=== PATIENT | male | born 1960 | race Hispanic/Latino ===

== ENCOUNTER 2024-09-30 19:44 | Emergency (ER) | payer OTHER ==
[~2024-09-30] VITALS: Ht 170.2 cm; Wt 102.1 kg
--- NOTE | 2024-09-30 19:50 | NUR ---
UA CUP PROVIDED
--- NOTE | 2024-09-30 19:58 | NUR ---
TRIAGE EDIT DUE TO PT INFORMS OF PMH KIDNEY STONES
--- NOTE | 2024-09-30 20:08 | EKG ---
[facility] Test Date: 2024-09-30 Test Time: 20:05:36 Pat Name: CURTIS GILL Department: ED Room: Gender: M Rn Discharge: [id number] : 1960 Requested By: JUMA ELDRIDGE Order Number: [id number] Reading MD: Prosper Maldonado Measurements Intervals [place] Rate: 65 P: 54 WI: 159 QRS: 39 QRSD: 102 T: 58 QT: 424 QTc: 442 Interpretive Statements Sinus rhythm No previous ECG available for comparison Electronically Signed On 10-02-2024 21:30:31 [employer] TECHNICIAN by Prosper Maldonado Please click the below link to view image of tracing.
[2024-09-30 20:22] LABS: APPEARANCE,URINE CLEAR (CLEAR); BILIRUBIN,URINE NEGATIVE (NEGATIVE); COLOR,URINE LIGHT-YELLOW (YELLOW); GLUCOSE, URINE (UA) >=1000 mg/dL (NEGATIVE); KETONES,URINE 5 mg/dL (NEGATIVE); LEUKOCYTE ESTERASE ,URINE NEGATIVE Leu/uL (NEGATIVE); NITRATE,URINE NEGATIVE (NEGATIVE); OCCULT BLOOD,URINE SMALL (NEGATIVE); PROTEIN,URINE 20 mg/dL (NEGATIVE); UROBILINOGEN,URINE 0.2 mg/dL (0.2-1.0)
--- NOTE | 2024-09-30 20:28 | HMCIMG ---
Exam Type: CT ABDOMEN/PELVIS W/O CONTRAST Clinical Information: right flank pain Comparison: None CT Dose Index (CTDI): 10.20 mGy Dose Length Product (DLP): 530.00 total mGy-cm PROTOCOL: Routine noncontrast helical scanning of the abdomen and pelvis was performed at 5mm collimation. Findings: Left nonobstructing nephrolithiasis. Kidneys otherwise unremarkable. The lung bases are clear. The stomach is unremarkable. It shows no wall thickening. No gross ulceration is seen. It is not overly distended. There are no surrounding inflammatory changes. No wall lesions are identified to suggest cancer. The spleen is unremarkable. It is not enlarged. The pancreas shows normal anatomy. It is not fatty replaced. It shows no lesions. The pancreatic duct is not dilated. The gallbladder is unremarkable. It shows no cholelithiasis. The gallbladder wall is normal in thickness. There is no pericholecystic fluid. The is no acute or chronic inflammation noted. The adrenal glands are unremarkable. There is no enlargement. No lesions are noted. The liver is unremarkable. It shows no focal masses. The appendix is unremarkable. It shows no evidence of inflammation. No appendicolith is seen. The small bowel is unremarkable. There is no evidence of dilatation to suggest obstruction. No evidence of adynamic ileus is seen. There is no small bowel wall thickening to suggest enteritis. The colon is unremarkable. The urinary bladder is unremarkable. There is no wall thickening to suggest tumor or inflammation. There are no intraluminal calculi. There are no diverticula. There is no evidence of chronic bladder outlet obstruction. There is no evidence of urinary bladder distention to suggest urinary retention. The other pelvic structures are unremarkable. The bony and vascular structures are unremarkable for the patient's age. IMPRESSION: Left nonobstructing nephrolithiasis. Kidneys otherwise unremarkable. This study was performed using dose reduction techniques to include automated exposure control and/or adjustment of the mA and/or kV according to patient size.
[2024-09-30 20:30] LABS: BASOPHILS % (AUTO) 0.8 % (0.0-5.0); EOSINOPHILS # (AUTO) 0.27 K/uL (0.00-0.70); EOSINOPHILS % (AUTO) 2.3 % (0.0-8.0); HEMATOCRIT 52.6 % (42-54); IMMATURE GRANULOCYTE ABSOLUTE 0.04 K/uL (0-1); LYMPHOCYTES # (AUTO) 3.3 K/uL (1.0-4.8); LYMPHOCYTES % (AUTO) 28.2 % (21.0-51.0); MEAN CORPUSCULAR HEMOGLOBIN 28.6 pg (27.0-33.0); MEAN CORPUSCULAR HGB CONC 33.3 g/dL (32.0-36.0); MEAN CORPUSCULAR VOLUME 86.1 fL (79-99); MONOCYTES # (AUTO) 0.8 K/uL (0.1-1.0); MONOCYTES % (AUTO) 6.4 % (3.0-13.0); NEUTROPHILS # (AUTO) 7.3 K/uL (1.8-7.7); PLATELET COUNT (AUTO) 238 K/uL (130-400); RED BLOOD CELL COUNT(AUTO) 6.11 MIL/uL (4.50-6.20); RED CELL DISTRIBUTION WIDTH 13.3 % (11.0-15.5); WHITE BLOOD COUNT (AUTO) 11.8 K/uL (4.8-10.8)
[2024-09-30 20:37] LABS: ADD UA MICROSCOPIC YES
[2024-09-30 20:45] LABS: SQUAMOUS EPITHELIAL CELL,UR RARE /HPF (0-2); WBC,URINE 0-1 /HPF (0-1)
[2024-09-30 20:46] LABS: CREATININE 1.5 mg/dL (0.5-1.3); POTASSIUM 3.8 mmol/L (3.5-5.1)
[2024-09-30 20:55] LABS: ALBUMIN 3.6 g/dL (3.5-5.0); BILIRUBIN,DIRECT 0.2 mg/dL (0.0-0.3); BILIRUBIN,TOTAL 1.7 mg/dL (0.2-1.0); TOTAL PROTEIN, SERUM 7.8 g/dL (6.0-8.3)
--- NOTE | 2024-09-30 21:05 | ERN ---
ED Note History of Present Illness Stated Complaint: ABDOMINAL PAIN Chief Complaint: Abdominal Pain Time Seen by MD: 19:54 Time Seen by Midlevel: 20:00 Dictation: 64-year-old male with a history of hypertension coming in complaining of right groin pain and right flank pain onset today worsening throughout the day. Patient states he has a history of kidney stones. Denies any fevers, nausea and vomiting and diarrhea Allergies: Coded Allergies: No Known Allergies (Unverified Allergy, Unknown, 09/30/24) Past Medical History Past Medical History: Diabetes-Type II, Hypertension, Kidney Stone Surgical History: None Review of System Dictation Constitutional: Negative for fever,chills, and weight loss Eyes: Negative for injury, pain,redness, and discharge ENT: Negative for injury,pain or swelling Cardiovascular: Negative for chest pain, palpitations, and edema Respiratory: Negative for shortness of breath, cough, and wheezing, Abdomen/GI: Complaining of right groin pain, nausea, vomiting, diarrhea, and constipation Back: Negative for injury and pain : Negative for injury, bleeding and discharge MS/Extremity: Negative for injury and deformity Skin: Negative for rash, and discoloration Neuro: Negative for headache, weakness, numbness, tingling, and seizure Psych: Negative for suicide ideation, homicidal ideation, and hallucinations Review of Systems: was completed Initial Vital Sign VS Vital Signs Date Time Temp Pulse Resp B/P (MAP) Pulse Ox O2 Delivery O2 Flow Rate FiO2 09/30/24 19:45 97.9 68 19 178/86 100 Room Air 09/30/24 21:50 0 21 Physical Exam Dictation General: awake, alert, NAD Head/Face: Normocephalic, atraumatic Eyes: PERRL, EOMI, vision at baseline ENT: oral cavity clear, TMs clear, no signs of infection Neck: Trachea midline, supple, no nuchal rigidity Cardiovascular: RRR, normal S1/S2, No MRGs, no JVD Respiratory: CTAB, no respiratory distress, No rales or wheezes Abdomen: Soft, non-tender, non-distended, normal bowel sounds, no guarding or rebound. Skin: Warm, dry, normal turgor, no rash MS/Extremity: Pulses equal, no cyanosis, neurovascular intact, FROM Neuro: COAx4, GCS 15, strength 5/5, CN 2-12 intact, normal cerebellar exam, normal gait, Psych: Normal behavior, mood, and affect normal Results (Laboratory/Radiology) Laboratory/Radiology Laboratory Tests Test 09/30/24 19:56 09/30/24 20:19 Urine Color LIGHT-YELLOW (YELLOW) Urine Appearance CLEAR (CLEAR) Urine pH 5.0 (5.0-8.0) Urine Specific [place] 1.013 (1.001-1.031) Urine Protein 20 mg/dL (NEGATIVE) H Urine Glucose (UA) >=1000 mg/dL (NEGATIVE) H Urine Ketones 5 mg/dL (NEGATIVE) H Urine Occult Blood SMALL (NEGATIVE) H Urine Nitrate NEGATIVE (NEGATIVE) Urine Bilirubin NEGATIVE mg/dL (NEGATIVE) Urine Urobilinogen 0.2 mg/dL (0.2-1.0) Urine Leukocyte Esterase NEGATIVE Domonique/uL Urine RBC 11-25 /HPF (0-1) H Urine WBC 0-1 /HPF (0-1) Urine Squamous Epithelial Cells RARE /HPF (0-2) Urine Bacteria None /HPF (None Seen) White Blood Count 11.8 K/uL (4.8-10.8) H Red Blood Count 6.11 MIL/uL (4.50-6.20) Hemoglobin 17.5 g/dL (14.0-18.0) Hematocrit 52.6 % (42-54) Mean Corpuscular Volume 86.1 fL (79-99) Mean Corpuscular Hemoglobin 28.6 pg (27.0-33.0) Mean Corpuscular Hemoglobin Concent 33.3 g/dL (32.0-36.0) Red Cell Distribution Width 13.3 % (11.0-15.5) Platelet Count 238 K/uL (130-400) Mean Platelet Volume 9.3 fL (7.5-10.5) Immature Granulocyte % (Auto) 0.3 % (0-1) Neutrophils (%) (Auto) 62.0 % (40.0-77.0) Lymphocytes (%) (Auto) 28.2 % (21.0-51.0) Monocytes (%) (Auto) 6.4 % (3.0-13.0) Eosinophils (%) (Auto) 2.3 % (0.0-8.0) Basophils (%) (Auto) 0.8 % (0.0-5.0) Neutrophils # (Auto) 7.3 K/uL (1.8-7.7) Lymphocytes # (Auto) 3.3 K/uL (1.0-4.8) Monocytes # (Auto) 0.8 K/uL (0.1-1.0) Eosinophils # (Auto) 0.27 K/uL (0.00-0.70) Basophils # (Auto) 0.10 K/uL (0.00-0.20) Absolute Immature Granulocyte (auto 0.04 K/uL (0-1) Nucleated Red Blood Cells 0.0 % (0.0-0.19) Sodium Level 140 mmol/L (136-145) Potassium Level 3.8 mmol/L (3.5-5.1) Chloride Level 104 mmol/L (101-111) Carbon Dioxide Level 31 mmol/L (21-32) Blood Urea Nitrogen 31 mg/dL (7-18) H Creatinine 1.5 mg/dL (0.5-1.3) H Glomerular Filtration Rate Calc 52 mL/min (>90) Random Glucose 96 mg/dL (70-105) Total Calcium 9.0 mg/dL (8.5-10.1) Total Bilirubin 1.7 mg/dL (0.2-1.0) H Direct Bilirubin 0.2 mg/dL (0.0-0.3) Aspartate Amino Transf (AST/SGOT) 19 U/L (10-37) Alanine Aminotransferase (ALT/SGPT) 28 U/L (12-78) Alkaline Phosphatase 90 U/L (50-136) Troponin I High Sensitivity 5 ng/L (4-75) Total Protein 7.8 g/dL (6.0-8.3) Albumin 3.6 g/dL (3.5-5.0) Lipase 44 U/L (16-77) Labs Reviewed?: Yes CT Scan Comment: [place] [id number] [address] IMAGING REPORT Signed PATIENT: CURTIS GILL MR#: [id number] : 1960 SEX: M AGE: 64 LOCATION: [facility] ORDER 99 STATUS: REG REPORT#: [id number] SERVICE 58 REASON: right flank pain ORDERING PHYSICIAN: IMAN SEPULVEDA NP PROCEDURE: ABD PEL WO - CT ABDOMEN/PELVIS W/O CONTRAST Exam Type: CT ABDOMEN/PELVIS W/O CONTRAST Clinical Information: right flank pain Comparison: None CT Dose Index (CTDI): 10.20 mGy Dose Length Product (DLP): 530.00 total mGy-cm PROTOCOL: Routine noncontrast helical scanning of the abdomen and pelvis was performed at 5mm collimation. Findings: Left nonobstructing nephrolithiasis. Kidneys otherwise unremarkable. The lung bases are clear. The stomach is unremarkable. It shows no wall thickening. No gross ulceration is seen. It is not overly distended. There are no surrounding inflammatory changes. No wall lesions are identified to suggest cancer. The spleen is unremarkable. It is not enlarged. The pancreas shows normal anatomy. It is not fatty replaced. It shows no lesions. The pancreatic duct is not dilated. The gallbladder is unremarkable. It shows no cholelithiasis. The gallbladder wall is normal in thickness. There is no pericholecystic fluid. The is no acute or chronic inflammation noted. The adrenal glands are unremarkable. There is no enlargement. No lesions are noted. The liver is unremarkable. It shows no focal masses. The appendix is unremarkable. It shows no evidence of inflammation. No appendicolith is seen. The small bowel is unremarkable. There is no evidence of dilatation to suggest obstruction. No evidence of adynamic ileus is seen. There is no small bowel wall thickening to suggest enteritis. The colon is unremarkable. The urinary bladder is unremarkable. There is no wall thickening to suggest tumor or inflammation. There are no intraluminal calculi. There are no diverticula. There is no evidence of chronic bladder outlet obstruction. There is no evidence of urinary bladder distention to suggest urinary retention. The other pelvic structures are unremarkable. The bony and vascular structures are unremarkable for the patient's age. IMPRESSION: Left nonobstructing nephrolithiasis. Kidneys otherwise unremarkable. This study was performed using dose reduction techniques to include automated exposure control and/or adjustment of the mA and/or kV according to patient size. DICTATED BY: JOSE MERCHANT MD DATE: 09/30/242023 ELECTRONICALLY SIGNED BY: JOSE MERCHANT MD DATE: 09/30/242027 ED Course ED Course Orders Procedure Category Date Status Time Vital Signs Per CPOE 09/30/24 Transmitted Routine 19:50 Saline Lock Iv CPOE 09/30/24 Transmitted 19:50 Cbc With Differential LAB 09/30/24 Complete 19:50 Lipase LAB 09/30/24 Complete 19:50 Urinalysis Profile LAB 09/30/24 Complete 19:50 12 Lead Ekg Tracing- EKG 09/30/24 Complete Technical 19:50 Troponin I High LAB 09/30/24 Complete Sensitivity 19:50 Basic Metabolic Panel LAB 09/30/24 Complete 19:50 Hepatic Function Panel LAB 09/30/24 Complete 19:50 Ct Abdomen/Pelvis W/O CT 09/30/24 Resulted Contrast 19:59 0.9%Nacl 1000ml (Ns PHA 09/30/24 In Process 1000ml) 19:59 Ketorolac PHA 09/30/24 Complete Tromethamine 15mg/Ml 19:59 Current Medications Medications (Trade) Dose Ordered Sig/Xavi Route PRN Reason Start Time Stop Time Status Last Admin Dose Admin Ketorolac Tromethamine (toRADol) 15 mg ONCE STAT IV 09/30/24 19:59 09/30/24 20:00 DC 09/30/24 21:48 Sodium Chloride 1,000 ml @ 100 mls/hr Q10H STAT IV 09/30/24 19:59 10/01/24 05:58 09/30/24 21:48 Vital Signs Date Time Temp Pulse Resp B/P (MAP) Pulse Ox O2 Delivery O2 Flow Rate FiO2 09/30/24 21:50 97.3 66 20 132/88 98 Room Air* 0 21 09/30/24 19:45 97.9 68 19 178/86 100 Room Air Medical Decision Making MDM MDM: 64-year-old male with a history of hypertension coming in complaining of right groin pain and right flank pain onset today worsening throughout the day. Patient states he has a history of kidney stones. Denies any fevers, nausea and vomiting and diarrhea.CBC shows mild leukocytosis of 11.8, no anemia, no thrombocytopenia. Chemistry shows mild elevation of BUN and creatinine, this co uld be related to dehydration. No transaminitis, lipase within normal range. UA shows no evidence of urinary tract infection. Hold hematuria. CT of the abdomen and pelvis without contrast shows a left nonobstructing nephrolithiasis, kidneys otherwise unremarkable. Patient received fluids and pain medication in the emergency room. Discussed with the patient's finding. Discussed that he needs to follow up with the urologist outpatient I will provide the referral. Educated on signs and symptoms of when to return to the ER like fever, nausea, vomiting. Patient verbalized understanding, answered all questions. Differential diagnosis: Kidney stone, urinary tract infection, appendicitis, constipation Rationale: Tests considered and ordered secondary to shared decision making include: Previous outside records reviewed: Old ER visits. Risk of complication and/or morbidity or mortality of patient management: None Medications-Per medication reconciliation Need for hospitalization: Patient does not meet criteria for hospitalization. Need for emergency major/minor surgery: No There are no social concerns with this patient. Prescription drug management Prescriptions will include symptomatic care Patient's prior external medical records from other ER visits were reviewed by me as indicated. Prior testing and results from previous visits were reviewed. Prior tests were taken into account with medical decision making and resource utilization, independent historian/historians were used to obtain complete medical history. I independently interpreted the test that were performed, results were reviewed by me and considered findings on radiology if ordered. Medical management and examination interpretation discussions were had by me with other qualified healthcare professionals as indicated for the patient's care. DX & DISP Disposition: Discharge Departure Impression: Primary Impression: Left nephrolithiasis Condition: Stable Additional Instructions: Can take Tylenol or ibuprofen [id number] for pain management. Increase fluid intake. And follow up with Dr. Lozadain his clinic. Return to the ER if you have any fever, nausea, vomiting or diarrhea. Referrals: SELF,REFERRAL (PCP) WILIAM LOZADA MD Time of Disposition: 22:02 I have reviewed the case, and I agree with, Diagnosis and Plan IMAN SEPULVEDA NP Sep 30, 2024 21:05
[2024-09-30] MEDS: ketOROlac 15MG/ML VIAL (15MG/ML) IV STA (21:48)
[2024-09-30] MEDS: 0.9%NACL 1000ML 1,000 ML IV STA (21:48)
[2024-09-30 21:50] VITALS: BP 132/88; PULSE 66; RESP 20; TEMP 97.4; O2SAT 98
== END 2024-09-30 22:47 | disposition home or self-care (01) ==
LOC: EDH 19:44 → EDBD 19:44 → EDH 22:47
DX: N20.0 Calculus of kidney (principal); E11.9 Type 2 diabetes mellitus without complications; I10 Essential (primary) hypertension
CPT/HCPCS: 99285; 74176; 96374; 96361; 80076; 84484; 80048; 83690; 85025; 81001; 36415; 93005; J7030; J1885